=== PATIENT | male | born 1950 | race Caucasian/White ===

== ENCOUNTER 2018-06-02 11:41 | Emergency (ER) | payer OTHER ==
[~2018-06-02] VITALS: Ht 180.3 cm; Wt 104.3 kg
[~2018-06-02 11:41] MED LIST: ASPI-1155 PO; ATEN1TAB47 PO; CAT.1 PO; IBUP-1971 PO; LOSA100T3 PO
--- NOTE | 2018-06-02 11:42 | NUR ---
Pt placed in bed 7
[2018-06-02 11:45] VITALS: BP_SYST 146
--- NOTE | 2018-06-02 11:45 | NUR ---
Dr Sanchez at bedside examining patient
--- NOTE | 2018-06-02 11:46 | NUR ---
Pt brought by self, A&Ox4, pt presents to ER with right knee pain and swelling starting one month ago, skin pink and warm, cap refill <3. pt ambulating with a cane.
--- NOTE | 2018-06-02 12:10 | NUR ---
Pt to x-ray. Ambulates with cane.
--- NOTE | 2018-06-02 12:15 | NUR ---
Pt returns from X-ray. Ice pack placed to Right knee.
[2018-06-02] MEDS ORDERED: HYDROcodone/ACETAMIN 5-325 MG TAB (NORCO/ VICODIN) PO ONE (13:00)
[2018-06-02 13:45] VITALS: BP_SYST 132
--- NOTE | 2018-06-02 13:45 | NUR ---
Patient given written and verbal discharge instructions and verbalizes understanding. ER MD discussed with patient the results and treatment provided. Patient in stable condition. ID arm band removed. Rx of [place] given. Patient educated on pain management and to follow up with PMD. Pain Scale 2/10, medicated prior to discharge. Opportunity for questions provided and answered. Medication side effect fact sheet provided.
== END 2018-06-02 13:45 | disposition home or self-care (01) ==
LOC: SED 11:41
DX: M25.561 Pain in right knee (principal); I10 Essential (primary) hypertension; Z79.899 Other long term (current) drug therapy
CPT/HCPCS: 73564; 99284